=== PATIENT | female | born 1995 | race Native Hawaiian/Other Pacific Islander ===

== ENCOUNTER 2018-06-04 13:01 | Emergency (ER) | payer OTHER ==
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
[2018-06-04 15:45] LABS: HCG UR QUAL NEGATIVE
[2018-06-04] MEDS ORDERED: LIDOCAINE PATCH 5% TOP STA (15:49)
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
[2018-06-04 19:09] VITALS: BP 128/88
== END 2018-06-04 19:08 | disposition home or self-care (01) ==
LOC: ED 13:01
DX: S13.9XXA Sprain of joints and ligaments of unspecified parts of neck, initial encounter (principal); S80.12XA Contusion of left lower leg, initial encounter; V89.2XXA Person injured in unspecified motor-vehicle accident, traffic, initial encounter
CPT/HCPCS: 72040; 72125; 81025; 99283; A9270